=== PATIENT | female | born 1970 | race Caucasian/White ===

== ENCOUNTER 2021-01-03 09:45 | Emergency (ER) | payer OTHER, SELFPAY ==
[2021-01-03 09:56] VITALS: BP 185/117; PULSE 96; RESP 16; TEMP 37.4; O2SAT 99
--- NOTE | 2021-01-03 09:56 | ED.GENADULT ---
HPI - General Adult General Chief complaint: Urogenital-Female Stated complaint: UTI Time Seen by Provider: 01/03/21 09:57 Source: patient Mode of arrival: ambulatory Limitations: no limitations History of Present Illness HPI narrative: 50-year-old female patient presents to the [facility] with complaints of urinary pain for the past week along with some chills and low-grade fevers. 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 Patient does take blood pressure medication but states she has cut her blood pressure medication in half daily to try and help her make it last . Patient denies chest pain or shortness of breath. Related Data Allergies Allergy/AdvReac Type Severity Reaction Status Date / Time sulfamethizole Allergy Intermediate Nausea And Verified 01/03/21 10:07 Vomiting trimethoprim Allergy Intermediate Nausea And Verified 01/03/21 10:07 Vomiting aspirin Allergy Unknown pulse Verified 01/03/21 10:07 racing metronidazole Allergy Unknown pulse Verified 01/03/21 10:07 racing sulfamethoxazole Allergy Unknown pulse Verified 01/03/21 10:07 racing METRONIDAZOLE HCL Allergy Unknown pulse Uncoded 01/03/21 10:07 racing steroid cream AdvReac Unknown anxiety Uncoded 01/03/21 10:07 Review of Systems Review of Systems: Narrative: CONSTITUTIONAL: Positive low-grade fever, chills, denies sweats. EYES: Denies visual changes, redness, or discharge. ENT: Denies rhinorrhea, congestion, sore throat, or otalgia. CARDIOVASCULAR: Denies chest pain, palpitations, or edema. RESPIRATORY: Denies cough or dyspnea. GASTROINTESTINAL: Denies abdominal pain, nausea, vomiting, or diarrhea. GENITOURINARY: Positive dysuria, denies hematuria. SKIN: Denies rash or itching. MUSCULOSKELETAL: Denies back pain, joint pain, or myalgia. NEUROLOGIC: Denies headache, numbness, or weakness. PSYCHIATRIC: Denies anxiety or depression. [facility] Past Medical History Medical History (Updated 01/03/21 @ 10:28 by CARLY Layton) Fractured skull Hernia Hypertension Mass of abdomen Neck fracture Surgical History Surgical History H/O abdominal surgery mass removal History of ureter stent Family History Family History Other Cerebrovascular accident Diabetes mellitus Family history of coronary artery disease Family history of malignant neoplasm of male breast Hypertension Social History Social History Smoking status: Never smoker Alcohol intake: never Comments At the time of my signature I agree with nursing past medical history, surgical, social, and family history. There is no relevant family history pertinent to the presenting complaint. Exam Narrative: Exam Narrative: GENERAL: Well-appearing, well-nourished, and in no acute distress. HEAD: Normocephalic, atraumatic. EYES: PERRLA and EOMI. ENT: Nares clear, no rhinorrhea or epistaxis. Mucous membranes moist. NECK: Supple. No lymphadenopathy CHEST: Clear to auscultation. No respiratory distress. Patient able talk in clear complete sentences. HEART: Regular rate and rhythm. No murmur heard. Normal peripheral pulses. ABDOMEN: Soft, nontender, nondistended, normal active bowel sounds. No CVA tenderness on percussion EXTREMITIES: Normal range of motion. No edema. SKIN: Warm, dry, no rash. NEURO: No focal deficits. Alert and oriented x3. Course Reevaluation(s) Reevaluation #1: Blood pressure was reevaluated and taken manually and was 176/104 after taking her metoprolol. Discussed with patient that I did get her a appointment with Dr. Trujillo today at 130. Patient states she will not be able to make it this afternoon but states that she called and did get switched to 11 AM this morning. Discussed with patient that that
[2021-01-03 10:09] VITALS: BP 185/117; PULSE 96; RESP 16; TEMP 37.4; O2SAT 99
[2021-01-03 11:11] VITALS: BP 176/104
== END 2021-01-03 11:11 | disposition home or self-care (01) ==
PROVIDERS: Emergency Provider Nurse Practitioner Family; PCP Internal Medicine
DX: N30.01 Acute cystitis with hematuria (principal); I10 Essential (primary) hypertension
CPT/HCPCS: 81003; 87077; 87086; 87088; 87186; 99213; G0463